=== PATIENT | female | born 1965 | race Caucasian/White ===

== ENCOUNTER 2023-09-30 07:53 | Outpatient (REF) | payer OTHER, SELFPAY ==
[2023-09-30 12:09] LABS: MANUAL DIFF FLAG NO
[2023-09-30 12:13] LABS: Basophils Percent Auto 0.5 % (0-2); Eosinophils Absolute Auto 0.3 X10*3/uL (0.0-0.4); Eosinophils Percent Auto 3.9 % (0-4); Hematocrit 43.5 % (37.0-47.0); Hemoglobin 14.1 g/dl (12.0-16.0); Imm Gran Abs Auto 0.02 X10*3/uL (0.00-0.03); Imm Gran Pct Auto 0.3 % (0.0-0.4); Lymphocytes Percent Auto 31.7 % (20-40); Mean Corpuscular HGB Conc 32.4 g/dl (31.0-35.0); Mean Corpuscular Hemoglobin 28.6 pg (27.0-33.0); Mean Corpuscular Volume 88.2 fL (80.0-98.0); Mean Platelet Volume 11.3 fL (9.4-12.3); Monocytes Absolute Auto 0.6 X10*3/uL (0.1-1.2); Monocytes Percent Auto 9.2 % (2-11); Neutrophils Absolute Auto 3.5 x10*3/uL (2.0-8.3); Neutrophils Percent Auto 54.4 % (45-73); Platelet Count 228 X10*3/uL (160-400); Red Blood Count 4.93 X10*6/uL (4.20-5.50); Red Cell Distribution Width 13.2 % (11.0-16.0); White Blood Count 6.4 X10*3/uL (4.8-10.8)
[2023-09-30 12:24] LABS: Appearance Urine Clear; Color Urine Yellow; Glucose Urine UA Negative (Negative); Leukocyte Esterase Urine Negative (Negative); Nitrite Urine Negative (Negative); Specific Gravity - Urine 1.015 (1.005-1.025); Urine Blood Negative (Negative); Urine Ketones Negative (Negative); Urine Protein Negative (Neg-Trace)
[2023-09-30 12:38] LABS: Alanine Aminotransferase 12 U/L (0-31); Albumin Level 4.2 g/dL (3.5-5.0); Alkaline Phosphatase 65 U/L (39-117); Anion Gap 15 (12-20); Aspartate Amino Transferase 16 U/L (5-31); Bilirubin Total 0.4 mg/dL (0.0-1.0); Blood Urea Nitrogen 16 mg/dL (9-16); Calcium 9.2 mg/dL (8.4-10.2); Carbon Dioxide 24 mmol/L (22-29); Chloride 108 mmol/L (96-108); Cholesterol 222 mg/dL (<200); Estimated Glomerular Filt Rate > 60; Glucose Fasting 90 mg/dL (60-99); HDL Cholesterol 63 mg/dL (>40); LDL Cholesterol Calculated 148 mg/dL (<100); Sodium 143 mmol/L (135-145); Total Protein 6.8 g/dL (6.5-8.0); Triglycerides 56 mg/dL (<150)
[2023-09-30 12:53] LABS: TSH reflex Free T4 1.96 uIU/mL (0.32-4.0); Vitamin D 25-OH Total 20.9 ng/mL (>30)
== END 2023-09-30 07:54 | disposition home or self-care (01) ==
LOC: HO.HMGCLDS 07:53
PROVIDERS: PCP Nurse Practitioner Family; Visit Provider Nurse Practitioner Family
DX: Z00.00 Encounter for general adult medical examination without abnormal findings (principal); Z78.0 Asymptomatic menopausal state
CPT/HCPCS: 36415; 80053; 80061; 81003; 82306; 84443; 85025

== ENCOUNTER 2023-10-16 12:33 | Outpatient (AMB) | payer OTHER, SELFPAY ==
--- NOTE | 2023-10-16 12:37 | A.OFFPC_ITS ---
Vital Signs 10/16/23 12:42 Weight 164 lb BP 110/78 Blood Pressure Location Rt brachial Position Sitting Pulse 62 Pulse Source Pulse Oximeter Pulse Oximetry (%) 95 Intake Visit Reasons: PE Intake Note: Patient here for physical exam. pt would like to discuss jaw discomfort which has been going on for about 1 year. 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 Allergies bacitracin [From Neosporin ([id number])] Allergy (Intermediate, Verified 10/16/23 12:46) Blister neomycin [From Neosporin ([id number])] Allergy (Intermediate, Verified 10/16/23 12:46) Blister polymyxin B [From Neosporin ([id number])] Allergy (Intermediate, Verified 10/16/23 12:46) Blister Medication List - Last Reconciled 10/16/23 by ALBERT Holliday albuterol sulfate 90 mcg/actuation (ProAir HFA) 2 puffs inhalation Q6H alclometasone 0.05% appl topical BID PRN atorvastatin 10 mg PO BEDTIME azelaic acid 15% topical BID cetirizine 10 mg PO DAILY Tobacco use date assessed: 10/16/23 Dental Screening Dental Screen Date: 10/16/23 Did you have a dental visit in the last 12 months?: Yes Did you have a dental problem in the last 6 months where you did not have access to dental care?: No Was dental information given to patient?: Patient has dentist HPI PE HPI Details Pt is here for a PE. Labs were already performed. Colon screen is up to date. Due for mammo, will order again. Pt's vitamin D was noted to be low. Recommended oral vitamin D supplement (100-200iu daily). Pt has a hx of TMJ. She reports popping with associated pain of her jaw. Will refer to PT. Dyslipidemia: Pt's cholesterol was elevated. Will start atorvastatin 10mg and repeat labs in 2 months. Pt is a smoker. She was referred for low-dose CT previously but did not go (insurance reasons at the time), will refer again. Will also send nicotine patches. [facility] Medical History (Updated 10/16/23 @ 13:06 by ALBERT Holliday) Nicotine dependence, cigarettes, uncomplicated Graves disease Family History Sister Mental health disorder Substance use disorder Social History Housing: House Patient Tobacco Use Status: Current everyday Tobacco user Cigarettes Per Day: 10 e-Cigarette/Vaping Use: Never Used Second Hand Smoke Exposure: No service: No Current occupational status: employed Current occupation: [employer] Current occupational exposures/hazards: Yes Cognitive needs: No Hearing needs: No Vision needs: No Questionnaire Thrive Questionnaire Date Thrive assessed: 08/13/22 KRISTINA-7 AMB Questionnaire KRISTINA-7 Date KRISTINA - 7 assessed: 08/13/22 Source: Developed by Drs. Rich Valentine, Laura Mendoza, Angel Booth and colleagues, with an educational amna from [employer]. Review of Systems Const Denies chills and Denies fever(s) Eyes Denies blurry vision ENT Denies vertigo, Denies dizziness and Denies sore throat Card Denies chest pain at rest, Denies chest pain with activity, Denies diaphoresis, Denies dyspnea and Denies dyspnea on exertion Resp Denies cough, Denies dyspnea, Denies dyspnea on exertion and Denies wheezing GI Denies abdominal pain, Denies melena, Denies hematochezia, Denies constipation, Denies diarrhea and Denies loose stools Denies hematuria Musc Denies numbness and Denies tingling Skin/Breast Denies lesions Neuro Denies vertigo, Denies dizziness, Denies numbness and Denies tingling Psych Denies anxiety, Denies depression, Denies homicidal ideation, Denies suicidal ideation and Denies other (substance abuse) Aller/Immun Denies wheezing Physical exam (Primary Care) Vital Signs: Last Vital Signs Pulse 62 10/16/23 12:42 BP 110/78 10/16/23 12:42 Pulse Ox 95 10/16/23 12:42 Tobacco/Smoking Status: Tobacco use Status Tobacco use date assessed 10/16/23 10/16/23 12:48 Patient Tobacco Use Status Current everyday Tobacco 10/16/23 12:39 e-Cigarette/Vaping Use Never Used 10/16/23 12:39 Thrive Assessment: Date of Thrive Assessment Date Thrive assessed 08/13/22 10/16/23 12:39 Const General: cooperative Nutritional Appearance: well nourished Orientation/consciousness: patient oriented x3 HENWA Other: + tmj bilat Head: Yes normal to inspection, Yes normocephalic and Yes atraumatic Ears: TM's normal bilaterally Eyes General: appearance normal, both eyes and all related structures Alignment and Position: alignment normal and position normal Neck Neck: Yes normal visual inspection and Yes no lymphadenopathy Thyroid: Thyroid normal Resp Effort & Inspection: normal respiratory effort Auscultation: clear to auscultation bilaterally Cardio Rate: regular rate Rhythm: regular rhythm Heart sounds: S1 normal heart sound present, S2 normal heart sound present and no murmurs GI Palpation (GI): Soft to palpation and nontender Auscultation: normal bowel sounds Skin Rashes: no rashes Neuro General: patient oriented x3, moves all extremities, no focal motor deficits and deep tendon reflexes 2+ bilaterally Romberg Test: Negative Psych Appearance: grossly normal Mental Status: mental status grossly normal Speech and movement: Normal speech and movement present Affect: normal affect Attitude: cooperative Thought process: Normal thought process present Thought content: Normal thought content present Insight: Good insight present (Psych) Judgement: Good judgement present (Psych) Assessment and Plan Assessment & Plan (1) Encounter for routine adult physical exam with abnormal findings: Code(s): Z00.01 - Encounter for general adult medical examination with abnormal findings Plan: Labs already performed (2) Vitamin D deficiency: Code(s): E55.9 - Vitamin D deficiency, unspecified Plan: Recommended vitamin D supplement (3) Dyslipidemia: Code(s): E78.5 - Hyperlipidemia, unspecified Plan: Starting atorvastatin, will repeat labs in 2 months (4) TMJ arthralgia: Code(s): M26.629 - Arthralgia of temporomandibular joint, unspecified side Plan: Referred to PT (5) Nicotine dependence, cigarettes, uncomplicated: Comment: (current smoker - onset 9yo, 1ppd x 47yrs, 45pyh) Code(s): F17.210 - Nicotine dependence, cigarettes, uncomplicated Plan: referring back to thoracics. nicotine patches sent Plan The patient agreed to the use of a medical records specialist for this encounter. Scribed for ALBERT Guerra by Nai Damon medical records specialist, on 10/16/2023 at 12:55 EST. Orders: Orders Comprehensive [place]. Panel Fast 2 Months E78.5 - Hyperlipidemia, unspecified MM screening mammo BI Today Z12.31 - Encounter for screening mammogram for malignant neoplasm of breast PT Evaluation and Treatment Today M26.629 - Arthralgia of temporomandibular joint, unspecified side Lipid Panel 2 Months E78.5 - Hyperlipidemia, unspecified Referrals Thoracic/General Surgery Referral F17.210 - Nicotine dependence, cigarettes, uncomplicated Medications: New nicotine 1 patch transdermal DAILY 28 ea 0RF atorvastatin 10 mg PO BEDTIME 90 tabs 0RF Refilled cetirizine 10 mg PO DAILY 90 tabs 1RF Coding Level of Care Code Est Pt Level 3 (55482) Est Pt Prev Care 40-64y(96291) Diagnoses Encounter for routine adult physical exam with abnormal findings Z00.01 Vitamin D deficiency E55.9 Dyslipidemia E78.5 TMJ arthralgia M26.629 Nicotine dependence, cigarettes, uncomplicated F17.210
[2023-10-16 12:42] VITALS: BP 110/78; PULSE 62; O2SAT 95
== END 2023-10-16 17:25 | disposition home or self-care (01) ==
PROVIDERS: Visit Provider Nurse Practitioner Family
DX: Z00.00 Encounter for general adult medical examination without abnormal findings (principal); E55.9 Vitamin D deficiency, unspecified; E78.5 Hyperlipidemia, unspecified; M26.629 Arthralgia of temporomandibular joint, unspecified side; F17.210 Nicotine dependence, cigarettes, uncomplicated
CPT/HCPCS: 99213; 99396

== ENCOUNTER → 2023-10-23 12:45 | Outpatient (BNV) | payer OTHER, SELFPAY | PROVIDERS: PCP Nurse Practitioner Family; Visit Provider Radiology Diagnostic Radiology | DX: Z12.31 Encounter for screening mammogram for malignant neoplasm of breast (principal) | CPT/HCPCS: 77063; 77067 ==

== ENCOUNTER 2023-10-23 12:48 | Outpatient (REF) | payer OTHER, SELFPAY ==
--- NOTE | ~2023-10-23 | MM_ITS ---
EXAMINATION: MM SCREENING DIGITAL BREAST TOMOSYNTHESIS, BILATERAL CLINICAL INFORMATION: Screening. Asymptomatic. COMPARISON: Mammography: This study is compared with prior exams dating back to 2013. TECHNIQUE: Digital breast tomosynthesis is performed in both the craniocaudal and mediolateral oblique views along with computer-aided detection (CAD). Synthesized 2D images are generated from the tomosynthesis. FINDINGS: There are scattered areas of fibroglandular density (ACR BI-RADS breast composition Category b). In the central portion of the left breast, in the posterior nipple line, there are grouped calcifications which warrant additional mammographic imaging with magnification. When the patient returns for the additional imaging of the left breast, the left MLO view should be repeated since there is motion artifact. In the right breast, there are no significant masses, abnormal calcifications, or other abnormalities. MM/MM tomosynthesis screening BI IMPRESSION: Grouped calcifications of the left breast warrant additional mammographic imaging with magnification. No mammographic signs of malignancy right breast. ASSESSMENT: BI-RADS BI-RADS 0 - Incomplete: Needs additional Imaging. RECOMMENDATION: Additional views of the left breast. Radiology department staff will contact the patient for additional imaging. Additional Imaging required This examination should not preclude the clinical evaluation of a suspicious palpable abnormality. This patient's information was entered into a reminder system with a target due date for their next mammogram.
== END 2023-10-23 12:49 | disposition home or self-care (01) ==
LOC: HO.MAMMO 12:48
PROVIDERS: PCP Nurse Practitioner Family; Visit Provider Nurse Practitioner Family
DX: Z12.31 Encounter for screening mammogram for malignant neoplasm of breast (principal)
CPT/HCPCS: 77063; 77067

== ENCOUNTER 2023-11-27 14:00 | Outpatient (REF) | payer OTHER, SELFPAY ==
--- NOTE | ~2023-11-27 | MM_ITS ---
EXAMINATION: MM DIAGNOSTIC DIGITAL BREAST TOMOSYNTHESIS, LEFT US BREAST LIMITED, LEFT MAMMOGRAPHY: CLINICAL INFORMATION: Diagnostic mammography to evaluate calcifications in the central left breast, middle one third, not seen previously in 2016. COMPARISON: Mammography: [place]23/[place]23 [place] [place] or 07/19/2015, 04/05/2014, 06/04/2013, and 05/27/2013 ([facility]). TECHNIQUE: Digital breast tomosynthesis is performed in following views: Full field 3-D left MLO view, as well as 2-D spot magnification left CC and ML views. This was followed by diagnostic left breast ultrasound. FINDINGS: There are scattered areas of fibroglandular density (ACR BI-RADS breast composition Category b). Diagnostic views demonstrate a group of pleomorphic suspicious calcifications in the central left breast retroareolar location, with linear, branching, and casting forms, suspicious. These do not conform to an underlying vessel or other structure. Stereotactic guided biopsy recommended. In addition, there is an oval slightly lobulated isodense mass at the 4:00 axis left breast, 3.5 cm from the nipple, measuring approximately 7 x 6 mm. This will be evaluated by ultrasound. ULTRASOUND: CLINICAL INFORMATION: Left breast 4:00 axis, 7 x 6 mm slightly lobular mass seen on diagnostic views for calcifications. COMPARISON: None relevant. TECHNIQUE: Targeted sonographic evaluation left breast was performed using a high frequency linear transducer. Attention was given to the 4:00 axis, 3 cm from the nipple left breast. Selected archived documentation. FINDINGS: LEFT BREAST: At the 4:00 axis, 3 cm from the nipple, there is a complicated cyst with through transmission, a lobular border, no internal color Doppler flow, and some low-level internal echoes measuring 5 x 6 x 5 mm. This is a probably benign in abnormality, and six-month follow-up targeted left breast ultrasound recommended. MM/MM added views LT IMPRESSION: -There are suspicious calcifications in the central left breast, middle one third, for which stereotactic biopsy is recommended. -At the 4:00 axis left breast, there is a lobulated complicated cyst as described, measuring 5 x 6 x 5 mm, probably benign and six-month interval follow-up recommended to ensure stability. -Findings and recommendations were discussed with the patient in detail. OVERALL ASSESSMENT: Mammography: BI-RADS 4 - Suspicious finding Ultrasound: BI-RADS 4 - Suspicious finding RECOMMENDATION: Biopsy recommended Electronically signed by: Joe Brown MD 11/27/2023 03:14 PM EDT
== END 2023-11-27 14:01 | disposition home or self-care (01) ==
LOC: HO.MAMMO 14:00
PROVIDERS: PCP Nurse Practitioner Family; Visit Provider Nurse Practitioner Family
DX: R92.1 Mammographic calcification found on diagnostic imaging of breast (principal)
CPT/HCPCS: 76642; 77065

== ENCOUNTER → 2023-11-27 14:00 | Outpatient (BNV) | payer OTHER, SELFPAY | PROVIDERS: PCP Nurse Practitioner Family; Visit Provider Radiology Diagnostic Radiology | DX: R92.1 Mammographic calcification found on diagnostic imaging of breast (principal) | CPT/HCPCS: 77061; 77065 ==

== ENCOUNTER 2023-11-28 16:22 | Outpatient (AMB) | payer OTHER, SELFPAY ==
--- NOTE | 2023-11-28 14:44 | A.OFFVIS_ITS ---
Intake Visit Reasons: Current Smoker Allergies bacitracin [From Neosporin ([id number])] Allergy (Intermediate, Verified 12:46) Blister neomycin [From Neosporin ([id number]-isp-[id number])] Allergy (Intermediate, Verified 10/16/23 12:46) Blister polymyxin B [From Neosporin ([id number]-lfa-[id number])] Allergy (Intermediate, Verified 0 10/16/23 12:46) Blister HPI HPI Current Smoker: Details: Initial telehealth visit via phone for this 58yo smoker with a 40PYH. Patient has been smoking since age 10 for 48 years at 3/4-1ppd. Currently at 3/4ppd. . Denies marijuana use. Denies second hand smoke exposure. Denies exposure to chemicals or substances like asbestos. . Denies known family history of lung cancer. Denies personal history of cancers. Denies chest CT in last year. . Denies recent travel outside the [place]. Denies recent respiratory illness or recent hospitalization for respiratory issues. Reports testing positive for COVID. Admits receiving COVID Vaccine. x 1. . Denies fever, chills, new/worsening cough, hemoptysis, hoarseness or dysphagia. Denies significant chest pain, significant dyspnea or unintentional weight loss. Patient Lung Cancer Screening Questionnaire reviewed with patient by provider. . Shared Decision Making Completed. Patient meets criteria. Discussed in detail with patient, the risk vs benefit of LDCT screening. Patient consents to proceed with scan. Discussed smoking cessation. [facility] Medical History (Updated 11/28/23 @ 14:50 by Oly Galan PA-C) Nicotine dependence, cigarettes, uncomplicated Graves disease Family History (Reviewed 10/16/23 @ 13:12 by Demetrius Butler, [facility]) Sister Mental health disorder Substance use disorder Social History (Updated 11/28/23 @ 14:51 by Oly Galan PA-C) Housing: House Patient Tobacco Use Status: Current everyday Tobacco user Cigarettes Per Day: 10 Years Smoked: (onset 10yo, 3/4-1ppd x 48yrs, 40pyh) e-Cigarette/Vaping Use: Never Used Second Hand Smoke Exposure: No service: No Current occupational status: employed Current occupation: [employer] Current occupational exposures/hazards: Yes Cognitive needs: No Hearing needs: No Vision needs: No Telehealth Telehealth Telehealth Platform: Telephone Location of provider rendering services: practice address Location of patient: address on file Patient Identification confirmed using: Name, : Yes Telehealth method: voice only Patient verbally consented to treatment: Yes Patient verbally consented to billing insurance company: Yes Patient informed of any privacy concerns related to visit: Yes Minutes spent on Phone/Video with Pt.: 15 Assessment & Plan Assessment & Plan (1) Nicotine dependence, cigarettes, uncomplicated: Comment: (current smoker - onset 10yo, 3/4-1ppd x 48yrs, 40pyh) Code(s): F17.210 - Nicotine dependence, cigarettes, uncomplicated Category: Medical Plan: - SDM visit completed today via phone - Patient meets criteria for LDCT for lung cancer screening purposes and is asymptomatic. - Smoking cessation counseling offered. Patients can always call [phone]. - Will arrange for a LDCT scan of the chest for screening purposes at [facility]. - Risks, benefits, and alternatives were discussed in detail and the patient agrees to proceed. - Risks discussed include but are not limited to: radiation exposure, anxiety during testing and while awaiting results, false negatives, false positives and possibility of additional intervention such as further imaging or surgical p rocedures for benign disease. - Benefits are obviously detection of lung cancer at an early stage which can lead to improved outcomes. - Discussed the importance of screening program compliance with adherence to yearly LDCT scan as scheduled - or sooner interval scans for personalized screening regimen. - Discussed follow up plan. Our office will send a letter discussing results and if needed set up phone call and office visit based on CT findings. - Patient educated on results categorization and the management decisions for suspicious findings potentially found on the screening LDCT scan. Any patient with a Lung RADS score of 3 or 4 will be reviewed by a multidisciplinary team at [facility] to form a plan of action in regards to scan findings. - If further work up is warranted for a suspicious lung finding this will be followed by the Lung Cancer Screening program in conjunction with the Thoracic Surgery Department at [facility]. - A copy of the office note and LDCT will be sent to the patient's PCP - as well as documentation on any associated further plans of care. - Incidental findings on LDCT are the PCP's responsibility. These findings are indicated with an S finding on the LDCT Assessment. A note discussing the findings will be sent to the PCP who is then responsible for further management. - All questions answered.? Coding Level of Care Code Lung Cancer Screening G0296 Diagnoses Nicotine dependence, cigarettes, uncomplicated F17.210
== END 2023-11-28 16:23 | disposition home or self-care (01) ==
LOC: HO.HPS 16:22
PROVIDERS: PCP Nurse Practitioner Family; Referring Provider Nurse Practitioner Family; Visit Provider Physician Assistant Medical
DX: F17.210 Nicotine dependence, cigarettes, uncomplicated (principal)
CPT/HCPCS: G0296

== ENCOUNTER → 2023-11-28 16:22 | Outpatient (BNVA) | payer OTHER, SELFPAY | PROVIDERS: PCP Nurse Practitioner Family; Visit Provider Physician Assistant Medical | DX: F17.210 Nicotine dependence, cigarettes, uncomplicated (principal) | CPT/HCPCS: G0296 ==

== ENCOUNTER 2023-11-29 10:02 | Outpatient (REF) | payer OTHER, SELFPAY ==
--- NOTE | ~2023-11-29 | CT_ITS ---
EXAMINATION: CT LOW-DOSE SCREENING CHEST WITHOUT CONTRAST CLINICAL INFORMATION: Nicotine dependence, cigarettes, uncomplicated. The patient is a current smoker with a 48 pack-year history of smoking. COMPARISON: None available. TECHNIQUE: Multidetector volumetric CT imaging of the chest is performed on a Siemens SOMATOM Definition scanner without contrast using low dose technique. Additional 2D coronal and sagittal reformatted images and axial 3D maximum intensity projection (MIP) images are generated on the CT workstation. This CT examination was performed using dose optimization techniques as appropriate, variously including the following: *Automated exposure control. *Adjustment of mA and/or kV according to patient size (this includes techniques or standardized protocols for targeted exams where dose is matched to indication/reason for exam; i.e. extremities or head). *Use of iterative reconstruction technique. TOTAL EXAM DLP: 42 mGy-cm. CTDIvol: 1.24 mGy. FINDINGS: PULMONARY NODULES: No suspicious pulmonary nodules. Small punctate calcified granulomas are present. LUNGS: Lungs bilaterally symmetrically expanded. There is diffuse mild emphysema along with mild bronchial thickening without bronchiectasis. No effusion or pneumothorax. Central airways patent. MEDIASTINUM: No mediastinal, hilar or axillary adenopathy or free fluid collection. CORONARY ARTERY CALCIFICATION: None visualized on this study. THYROID GLAND: Unremarkable to the extent seen. CARDIOVASCULAR STRUCTURES: Aortic and heart size normal. No pericardial effusion. CHEST WALL/AXILLA: Unremarkable. UPPER ABDOMEN: Included portions of the solid organs in the upper abdomen unremarkable on noncontrast imaging. OSSEOUS STRUCTURES: No suspicious focal findings. CT/CT lung screening IMPRESSION: No findings seen suspicious for malignancy. ASSESSMENT: 1. Lung-RADS Category 1: Negative. There are no nodules or there are definitely benign nodules. N/A. 2. Lung-RADS Category S: Negative. There are no clinically significant or potentially clinically significant findings not related to the lungs requiring urgent additional evaluation. RECOMMENDATION: Continued routine annual low-dose CT lung screening in 1 year is recommended. An order for CT CHEST LOW DOSE CANCER SCREENING ([id number]) can be placed. Electronically signed by: Ebenezer Ott MD 12/27/2023 12:54 AM EDT
== END 2023-11-29 10:03 | disposition home or self-care (01) ==
LOC: HO.CT 10:02
PROVIDERS: PCP Nurse Practitioner Family; Visit Provider Physician Assistant Medical
DX: Z12.2 Encounter for screening for malignant neoplasm of respiratory organs (principal); F17.210 Nicotine dependence, cigarettes, uncomplicated
CPT/HCPCS: 71271

== ENCOUNTER 2023-12-03 08:38 | Outpatient (AMB) | payer OTHER, SELFPAY ==
--- NOTE | 2023-12-03 08:39 | A.OFFVIS_ITS ---
Vital Signs 12/03/23 08:40 Height 5 ft 5 in Weight 164 lb BMI 27.3 Intake Visit Reasons: Stereotactic bx (L) breast with calcifications Intake Note: Patient is seen in office for stereotactic biopsy consult, left breast calcifications. Pt c/o: reports no breast lump/mass, reports no change in size or shape, reports no nipple discharge. us/mm:11/27/23 Cell Preparer Required: No Accompanied by: Self / Same As Patient Allergies bacitracin [From Neosporin ([id number])] Allergy (Intermediate, Verified 12/03/23 08:43) Blister neomycin [From Neosporin ([id number]-yck-mqujy)] Allergy (Intermediate, Verified 12/03/23 08:43) Blister polymyxin B [From Neosporin ([id number])] Allergy (Intermediate, Verified 12/03/23 08:43) Blister HPI Comments Details: 58-year-old female patient presenting with a screening mammogram of 10/23/2023 and follow-up diagnostic mammogram and ultrasound on 11/27/2023 which revealed a suspicious cluster of calcifications in the left breast in the central portion middle 3rd for which stereotactic guided core biopsy is recommended. A 2nd left breast complicated cyst located at the 04:00 o'clock axis is considered low suspicion and six-month follow-up study is recommended. She denies a previous history of breast problems or breast surgery. Her family history is positive for breast cancer in her mother, diagnosed at the age of 60. She underwent lumpectomy and lived to her 90s. She denies any breast pain, palpable lump, skin change, nipple discharge or enlarged lymph nodes. Menarche was the age of 10. She is 2, para 2, and breastfed both her children. [facility], [facility] Medical History Nicotine dependence, cigarettes, uncomplicated Graves disease Family History Sister Mental health disorder Substance use disorder Mother Breast cancer, Onset Age: 60 Sister Skin cancer Social History Housing: House Patient Tobacco Use Status: Current everyday Tobacco user Cigarettes Per Day: 10 Years Smoked: (onset 10yo, 3/4-1ppd x 48yrs, 40pyh) e-Cigarette/Vaping Use: Never Used Second Hand Smoke Exposure: No service: No Current occupational status: employed Current occupation: [employer] Current occupational exposures/hazards: Yes Cognitive needs: No Hearing needs: No Vision needs: No Female Reproductive History Menstrual Age of Menarche: 10 Total pregnancies: 2 Review of Systems Const All systems reviewed & are unremarkable except as noted in HPI and below Denies chills, Denies fever(s), Denies headache(s), Denies poor appetite and Denies weakness ENT Denies headache(s) Card Denies chest pain, Denies irregular heart rhythm, Denies palpitations and Denies dyspnea Resp Denies cough, Denies excessive phlegm production and Denies dyspnea GI Denies abdominal pain, Denies bloating, Denies change in bowel habits, Denies constipation, Denies heartburn, Denies diarrhea, Denies nausea and Denies vomiting Denies urinary frequency Musc Denies back pain, Denies muscle weakness and Denies numbness Skin/Breast Denies changing lesions and Denies unusual bruising Neuro Denies headache(s), Denies numbness, Denies paresthesias and Denies weakness Psych Denies anxiety and Denies depression Endo Denies palpitations Bishop/Lymph Denies lymphadenopathy Physical Exam Vital Signs: BMI result Body Mass Index 27.3 Const General: cooperative and no acute distress Nutritional Appearance: well nourished Orientation/consciousness: patient oriented x3 Limitations: no limitations HEENT Head: Yes normocephalic and Yes atraumatic Ears: hearing grossly normal bilaterally Chest Other: Left breast: No skin change, no nipple retraction, no nipple discharge, no palpable mass, no enlarged lymph nodes. Right breast: No skin change, no nipple retraction, no nipple discharge, no palpable mass, no enlarged lymph nodes Resp Effort & Inspection: normal respiratory effort, no audible wheezes, no cough and no respiratory distress Cardio Jugular venous distension: no JVD GI Inspection: Yes normal to inspection Skin Other: Warm, dry, no rash Neuro General: patient oriented x3 Extrem General: Yes no clubbing, cyanosis or edema Assessment & Plan Assessment & Plan (1) Abnormal mammogram of left breast: Code(s): R92.8 - Other abnormal and inconclusive findings on diagnostic imaging of breast Category: Medical Plan 58-year-old female patient presenting with a recent mammogram which revealed a cluster of calcifications in the mid left breast felt to be suspicious for malignancy. She is scheduled for a stereotactic guided core biopsy later today at the [facility]. Examination today revealed no suspicious findings in either breast. I recommended that she return approximately 1 week to review the pathology results and discuss treatment options. She expressed understanding and agrees with the plan. Orders: Orders MM stereotactic biopsy LT Today R92.8 - Other abnormal and inconclusive findings on diagnostic imaging of breast Coding Level of Care Code New Pt Level 4 (51378) Diagnoses Abnormal mammogram of left breast R92.8
[2023-12-03 08:40] VITALS: BMI 27.3
== END 2023-12-03 09:01 | disposition home or self-care (01) ==
PROVIDERS: PCP Nurse Practitioner Family; Visit Provider Surgery
DX: R92.8 Other abnormal and inconclusive findings on diagnostic imaging of breast (principal)
CPT/HCPCS: 99204

== ENCOUNTER 2023-12-03 09:51 | Outpatient (REF) | payer OTHER, SELFPAY ==
--- NOTE | ~2023-12-03 | MM_ITS ---
EXAMINATION: STEREOTACTIC TOMOSYNTHESIS-GUIDED VACUUM-ASSISTED BREAST BIOPSY, LEFT SPECIMEN RADIOGRAPH, LEFT POST PROCEDURE DIGITAL MAMMOGRAM, LEFT CLINICAL INFORMATION: Suspicious grouped calcifications central left breast middle one third, recommended for stereotactic biopsy.. COMPARISON: 10/23/2023, 11/27/2023 left breast mammography. TECHNIQUE/PROCEDURE: Informed consent was obtained from the patient after discussion of the benefits, risks, and alternatives to biopsy today. Patient appeared to understand. Gave opportunity for questions. Patient signed consent form. BIOPSY TABLE: Bucket[employer]et Affirm Prone Biopsy System. LESION: Grouped pleomorphic calcifications, central left breast, middle one third. LOCAL ANESTHESIA: 4 mL 1% lidocaine; 10 mL 1% lidocaine with epinephrine. DERMATOTOMY: Single 2 mm skin antione dermatotomy performed. NEEDLE: Ova[employer] Oncologyiva 9-gauge vacuum assisted core biopsy device. APPROACH: craniocaudal. TARGETING: Digital breast tomosynthesis used for targeting. CORES: 7. CLIP: Top hat-shaped. SPECIMEN RADIOGRAPH: Specimen radiograph is taken in separate room using digital mammography. The index calcifications are in the excised cores. A few residual calcifications remaining at the site. POST PROCEDURE UNILATERAL DIGITAL MAMMOGRAM: The post biopsy mammogram is performed in separate room using separate digital mammography equipment from the biopsy procedure. CC and MLO views are obtained. There are scattered areas of fibroglandular density (breast composition category: b). The clip marker is in accurate position. The calcifications are markedly decreased at the biopsy site. No gross hematoma. The patient tolerated the procedure well. No immediate complications. Home instructions reviewed with the patient. Final pathology results are pending. MM/MM stereotactic biopsy LT IMPRESSION: 1. Digital tomosynthesis-guided core biopsy left breast suspicious central calcifications with clip placement. 2. Specimen radiograph taken and post procedure mammogram. There is accurate positioning of the biopsy clip. No complication. 3. Final pathology results pending. An addendum report will be issued. Electronically signed by: Joe Brown MD 12/03/2023 12:14 PM EDT
[2023-12-03] MEDS: Lidocaine HCl 1 % 20 ML VIAL 4 ML SUBCUT (10:47)
[2023-12-03] MEDS: Sodium Bicarbonate 8.4% 50 MEQ/50 ML VIAL SUBCUT (10:48)
[2023-12-03] MEDS: Lidocaine HCl 1%/Epi 1:100,000 10 ML VIAL 18 ML SUBCUT (10:50)
== END 2023-12-03 09:52 | disposition home or self-care (01) ==
LOC: HO.MAMMO 09:51
PROVIDERS: PCP Nurse Practitioner Family; Visit Provider Surgery
DX: R92.8 Other abnormal and inconclusive findings on diagnostic imaging of breast (principal)
CPT/HCPCS: 19081; 88305; 99202; A4648

== ENCOUNTER → 2023-12-03 10:00 | Outpatient (BNV) | payer OTHER, SELFPAY | PROVIDERS: PCP Nurse Practitioner Family; Visit Provider Radiology Diagnostic Radiology | DX: R92.1 Mammographic calcification found on diagnostic imaging of breast (principal) | CPT/HCPCS: 19081; 77061 ==

== ENCOUNTER 2023-12-17 13:42 | Outpatient (AMB) | payer OTHER, SELFPAY ==
--- NOTE | 2023-12-17 13:46 | A.OFFVIS_ITS ---
Vital Signs 12/17/23 13:47 Height 5 ft 5 in Weight 163 lb 2.273 oz BMI 27.1 Pulse 62 Intake Visit Reasons: Biopsy results Intake Note: Patient is seen in office for stereotactic biopsy results, left breast calcifications. Pt c/o: no concerns at the time of visit Public Health Director Required: No Accompanied by: Self / Same As Patient Allergies bacitracin [From Neosporin ([id number])] Allergy (Intermediate, Verified 12/17/23 13:47) Blister neomycin [From Neosporin ([id number])] Allergy (Intermediate, Verified 12/17/23 13:47) Blister polymyxin B [From Neosporin ([id number])] Allergy (Intermediate, Verified 12/17/23 13:47) Blister HPI Comments Details: 58-year-old female patient presenting with a screening mammogram of 10/23/2023 and follow-up diagnostic mammogram and ultrasound on 11/27/2023 which revealed a suspicious cluster of calcifications in the left breast in the central portion middle 3rd for which stereotactic guided core biopsy is recommended. A 2nd left breast complicated cyst located at the 04:00 o'clock axis is considered low suspicion and six-month follow-up study is recommended. She denies a previous history of breast problems or breast surgery. Her family history is positive for breast cancer in her mother, diagnosed at the age of 60. She underwent lumpectomy and lived to her 90s. She denies any breast pain, palpable lump, skin change, nipple discharge or enlarged lymph nodes. Menarche was the age of 10. She is 2, para 2, and breastfed both her children. Patient underwent stereotactic guided core biopsy on 12/03/2023. Subsequent pathology revealed benign breast tissue with fibrocystic change; no atypia or malignancy identified. A follow-up ultrasound of the left breast was recommended in 6 months' time. [facility] Medical History Nicotine dependence, cigarettes, uncomplicated Graves disease Family History Sister Mental health disorder Substance use disorder Mother Breast cancer, Onset Age: 60 Sister Skin cancer Social History Housing: House Patient Tobacco Use Status: Current everyday Tobacco user Cigarettes Per Day: 10 Years Smoked: (onset 10yo, 3/4-1ppd x 48yrs, 40pyh) e-Cigarette/Vaping Use: Never Used Second Hand Smoke Exposure: No service: No Current occupational status: employed Current occupation: [employer] Current occupational exposures/hazards: Yes Cognitive needs: No Hearing needs: No Vision needs: No Female Reproductive History Menstrual Age of Menarche: 10 Review of Systems Const All systems reviewed & are unremarkable except as noted in HPI and below Denies chills, Denies fever(s), Denies headache(s), Denies poor appetite and Denies weakness ENT Denies headache(s) Card Denies chest pain, Denies irregular heart rhythm, Denies palpitations and Denies dyspnea Resp Denies cough, Denies excessive phlegm production and Denies dyspnea GI Denies abdominal pain, Denies bloating, Denies change in bowel habits, Denies constipation, Denies heartburn, Denies diarrhea, Denies nausea and Denies vomiting Denies urinary frequency Musc Denies back pain, Denies muscle weakness and Denies numbness Skin/Breast Denies changing lesions and Denies unusual bruising Neuro Denies headache(s), Denies numbness, Denies paresthesias and Denies weakness Psych Denies anxiety and Denies depression Endo Denies palpitations Bishop/Lymph Denies lymphadenopathy Physical Exam Vital Signs: Last Vital Signs Pulse 62 12/17/23 13:47 BMI result Body Mass Index 27.1 Const General: cooperative and no acute distress Nutritional Appearance: well nourished Orientation/consciousness: patient oriented x3 Limitations: no limitations HEENT Head: Yes normocephalic and Yes atraumatic Ears: hearing grossly normal bilaterally Chest Other: Exam deferred Resp Effort & Inspection: normal respiratory effort, no audible wheezes, no cough and no respiratory distress Cardio Jugular venous distension: no JVD GI Inspection: Yes normal to inspection Skin Other: Warm, dry, no rash Neuro General: patient oriented x3 Extrem General: Yes no clubbing, cyanosis or edema Assessment & Plan Assessment & Plan (1) Abnormal mammogram of left breast: Code(s): R92.8 - Other abnormal and inconclusive findings on diagnostic imaging of breast Category: Medical Plan 58-year-old female patient with a recent mammogram which revealed a suspicious cluster of calcifications in the left breast status post stereotactic guided core biopsy 1 week ago. Subsequent pathology revealed benign breast tissue with no atypia or malignancy. A follow-up ultrasound of the left breast is recommended to re-evaluate a complex cyst. Patient should follow up following this ultrasound to review the results. She is welcome to call sooner for any new concerns. Orders: Orders US breast LT limited 06/15/24 R92.8 - Other abnormal and inconclusive findings on diagnostic imaging of breast Coding Level of Care Code Est Pt Level 3 (58500) Diagnoses Abnormal mammogram of left breast R92.8
[2023-12-17 13:47] VITALS: PULSE 62; BMI 27.1
== END 2023-12-17 13:56 | disposition home or self-care (01) ==
PROVIDERS: PCP Nurse Practitioner Family; Visit Provider Surgery
DX: R92.8 Other abnormal and inconclusive findings on diagnostic imaging of breast (principal)
CPT/HCPCS: 99213

== ENCOUNTER → 2023-12-17 13:42 | Outpatient (BNVA) | payer OTHER, SELFPAY | PROVIDERS: PCP Nurse Practitioner Family; Visit Provider Surgery | DX: R92.8 Other abnormal and inconclusive findings on diagnostic imaging of breast (principal) | CPT/HCPCS: 99212 ==

== ENCOUNTER 2024-01-06 07:35 | Outpatient (AMB) | payer OTHER, SELFPAY ==
--- NOTE | 2024-01-06 07:08 | MHC.PC.OV ---
Intake Visit Reasons: Chhaya pain f/u ~ [phone] Allergies bacitracin [From Neosporin ([id number])] Allergy (Intermediate, Verified 12/17/23 13:47) Blister neomycin [From Neosporin ([id number])] Allergy (Intermediate, Verified 12/17/23 13:47) Blister polymyxin B [From Neosporin ([id number])] Allergy (Intermediate, Verified 12/17/23 13:47) Blister Medication List - Last Reconciled 01/06/24 by ZHOU Holliday-RODNEY albuterol sulfate 90 mcg/actuation (ProAir HFA) 2 puffs inhalation Q6H alclometasone 0.05% appl topical BID PRN atorvastatin 10 mg PO BEDTIME azelaic acid 15% topical BID cetirizine 10 mg PO DAILY ibuprofen 800 mg PO Q8H PRN 30 days nicotine 1 patch transdermal DAILY Tobacco use date assessed: 10/16/23 Dental Screening Dental Screen Date: 10/16/23 HPI Chhaya pain f/u ~ [phone] HPI Details Pt c/o jaw pain. She has a hx of TMJ. Pt is going to PT for this, encouraged her to continue this. Will order XR and refer to orthodontics, ongoing pain and discomfort. Will also send ibuprofen 800mg, pt knows to take this prn. [facility] Medical History Nicotine dependence, cigarettes, uncomplicated Graves disease Family History Sister Mental health disorder Substance use disorder Mother Breast cancer, Onset Age: 60 Sister Skin cancer Social History Housing: House Patient Tobacco Use Status: Current everyday Tobacco user Cigarettes Per Day: 10 Years Smoked: (onset 10yo, 3/4-1ppd x 48yrs, 40pyh) e-Cigarette/Vaping Use: Never Used Second Hand Smoke Exposure: No service: No Current occupational status: employed Current occupation: [employer] Current occupational exposures/hazards: Yes Cognitive needs: No Hearing needs: No Vision needs: No Female Reproductive History Menstrual Age of Menarche: 10 Questionnaire Thrive Questionnaire Date Thrive assessed: 08/13/22 KRISTINA-7 AMB Questionnaire KRISTINA-7 Date KRISTINA - 7 assessed: 08/13/22 Source: Developed by Drs. Rich Valentine, Laura Mendoza, Angel Booth and colleagues, with an educational amna from [employer]. Review of Systems Const Reports as per HPI Physical exam (Primary Care) Tobacco/Smoking Status: Tobacco use Status Tobacco use date assessed 10/16/23 10/16/23 12:48 Patient Tobacco Use Status Current everyday Tobacco 11/28/23 14:51 e-Cigarette/Vaping Use Never Used 11/28/23 14:51 Thrive Assessment: Date of Thrive Assessment Date Thrive assessed 08/13/22 10/16/23 12:39 Const General: cooperative Orientation/consciousness: patient oriented x3 Neuro General: patient oriented x3 Psych Appearance: grossly normal Mental Status: mental status grossly normal Speech and movement: Clear speech present Affect: normal affect Attitude: cooperative Thought process: Normal thought process present Thought content: Normal thought content present Insight: Good insight present (Psych) Judgement: Good judgement present (Psych) Telehealth Telehealth Telehealth Platform: Backspaces Location of provider rendering services: practice address Location of patient: address on file Patient Identification confirmed using: Name, : Yes Telehealth method: video Patient verbally consented to treatment: Yes Patient verbally consented to billing insurance company: Yes Patient informed of any privacy concerns related to visit: Yes Minutes spent on Phone/Video with Pt.: 10 Assessment and Plan Assessment & Plan (1) TMJ arthralgia: Code(s): M26.629 - Arthralgia of temporomandibular joint, unspecified side Plan: XR ordered, referred to orthodontics, ibuprofen sent Plan The patient agreed to the use of a medical and scientific illustrator for this encounter. Scribed for ALBERT Guerra by Nai Damon medical and scientific illustrator, on 01/06/2024 at 07:05 EST. Orders: Orders XR TMJ BI Today M26.629 - Arthralgia of temporomandibular joint, unspecified side Referrals Orthodontics Referral M26.629 - Arthralgia of temporomandibular joint, unspecified side Medications: New ibuprofen 800 mg PO Q8H 30 days PRN 90 tabs 0RF pain Coding Level of Care Code Tele Est Pt Level 3 (41702) Diagnoses TMJ arthralgia M26.629
== END 2024-01-06 08:31 | disposition home or self-care (01) ==
LOC: HO.HMCC 07:36
PROVIDERS: PCP Nurse Practitioner Family; Visit Provider Nurse Practitioner Family
DX: M26.629 Arthralgia of temporomandibular joint, unspecified side (principal)

== ENCOUNTER → 2024-01-06 07:35 | Outpatient (BNVA) | payer OTHER, SELFPAY | PROVIDERS: PCP Nurse Practitioner Family; Visit Provider Nurse Practitioner Family | DX: M26.629 Arthralgia of temporomandibular joint, unspecified side (principal) ==

== ENCOUNTER 2024-01-27 14:00 | Outpatient (RCR) | payer OTHER, SELFPAY | END 2024-03-13 09:27 | disposition home or self-care (01) | LOC: HO.PT 14:00 | PROVIDERS: PCP Nurse Practitioner Family; Visit Provider Nurse Practitioner Family | DX: M26.629 Arthralgia of temporomandibular joint, unspecified side (principal) | CPT/HCPCS: 97035; 97110; 97140; 97161; 97535 ==

== ENCOUNTER → 2024-04-24 10:30 | Outpatient (BNV) | payer OTHER, SELFPAY | PROVIDERS: PCP Internal Medicine; Visit Provider Radiology Diagnostic Radiology | DX: M85.89 Other specified disorders of bone density and structure, multiple sites (principal) | CPT/HCPCS: 77080 ==

== ENCOUNTER 2024-04-24 10:39 | Outpatient (REF) | payer OTHER, SELFPAY ==
--- NOTE | ~2024-04-24 | MM_ITS ---
EXAMINATION: Dual-Energy X-ray Absorptiometry - Bone Density Study HISTORY: Estrogen deficiency TECHNIQUE: [employer] Dual energy absorptiometry (DEXA) of the lumbar spine, total left hip, and femoral neck was performed. COMPARISON: There are no prior studies for comparison. FINDINGS: The bone mineral density of the lumbar spine is 0.637 with a T-score of -4.5, and a Z-score of -3.5. The bone mineral density of the left total hip is 0.660 with a T-score of -2.8, and a Z-score of -2.0. The bone mineral density of the left femoral neck is 0.728 with a T-score of -2.2, and a Z-score of -1.1. FRACTURE RISK: The FRAX index suggests a risk of major osteoporotic fracture of 11.3%, and of hip fracture 2.9%. MM/XR DEXA axial skeleton IMPRESSION: Based on bone mineral density, and according to World Health Organization (WHO) criteria, the diagnosis is consistent with osteoporosis. All bone density values are in grams per centimeter squared. At this facility, the least significant change in BMD with 95% confidence is 0.022 at the lumbar spine, 0.027 at the hip, and 0.023 at the distal 1/3 radius. Electronically signed by: Rich Tejeda MD 04/24/2024 02:38 PM [facility]
== END 2024-04-24 10:40 | disposition home or self-care (01) ==
LOC: HO.MAMMO 10:39
PROVIDERS: PCP Internal Medicine; Visit Provider Nurse Practitioner Women's Health
DX: Z78.0 Asymptomatic menopausal state (principal)
CPT/HCPCS: 77080

== ENCOUNTER → 2024-09-25 08:00 | Outpatient (BNV) | payer OTHER, SELFPAY | PROVIDERS: PCP Nurse Practitioner Family; Visit Provider Internal Medicine | DX: N63.23 Unspecified lump in the left breast, lower outer quadrant (principal) | CPT/HCPCS: 76642 ==

== ENCOUNTER 2024-09-25 08:07 | Outpatient (REF) | payer OTHER, SELFPAY ==
--- NOTE | ~2024-09-25 | US_ITS ---
EXAMINATION: US DIAGNOSTIC ULTRASOUND BREAST, LEFT CLINICAL INFORMATION: 6 month follow-up for complicated cysts versus solid mass at 4:00 3 cm from the nipple in the left breast.. COMPARISON: Comparison is made with relevant prior imaging. TECHNIQUE: Ultrasound of the breast is performed with real-time hamilton scale imaging and color Doppler. FINDINGS: Targeted color Doppler ultrasound scanning of 4:00 3 cm from nipple demonstrates a hypoechoic oval solid mass versus complicated cyst measuring 5 x 4 x 5 mm not significant change from prior ultrasound 6 months ago. Results are discussed with the patient at time of visit. US/US breast LT limited IMPRESSION: Hypoechoic solid mass versus complicated cyst in the left breast at 4:00 3 cm from nipple. Recommend 6 month follow-up ultrasound for further evaluation of stability. ASSESSMENT: BI-RADS 3: Probably Benign RECOMMENDATION: Diagnostic ultrasound in 6 months. This patient's information was entered into a reminder system with a target due date for their next mammogram. Electronically signed by: Lesley Montero DO 09/25/2024 09:12 AM EDT
--- OUTSIDE RECORDS SUMMARY | 2024-09-25 08:10 | XMS_ITS | Clinical Summary ---
Author Organization [address] [place] [address] [place] [phone] Phone Care Team Providers Care Briar Cutter Name Role Phone Demetrius Butler NP Primary Care Provider Immunizations Name Administration Dates Next Due Influenza Quadravalent, MDCK , 0.5ml, preservative free (Flucelvax) 6mo and older 02/18/2018 Influenza Quadrivalent, 0.5m l, preservative free (Fluarix; FluLaval; Fluzone) ages 6mo and older (Afluria) 3yo and older 04/27/2020 Influenza trivalent, with pr eservative (Fluzone; Afluria) 6mo and older 04/22/2012 Social History Tobacco Use Types Packs/Day Years Used Date Smoking Tobacco: Never Assessed Comments Unknown Sex and Gender Information Value Date Recorded Sex Assigned at Not on file Legal Sex Female 12:52 PM EST Gender Identity Not on file Sexual Orientation Not on file Plan of Treatment Health Maintenance Due Date Last Done Comments Breast Cancer Screening 1965 DTaP,Tdap,and Td Vaccines (1 - Tdap) 10/21/1982 Cervical Cancer Screening: P ap Smear 10/21/1984 Pneumococcal Vaccine: 50+ Years (1 of 1 - PCV) 10/21/2013 Zoster Vaccines (1 of 2) 10/21/2013 COVID-19 Vaccine (3 - 2023-2 5 season) 2023 07/15/2020, 06/24/2020 Colorectal Cancer Screening: Colonoscopy 02/12/2024 Depression Screening 02/12/2024 HIV Screening 02/12/2024 Hepatitis C Screening 02/12/2024 Social Influencers of Health Screening 02/12/2024 Influenza Vaccine (Season Ended) 2024 04/27/2020, 02/18/2018, 04/22/2012 RSV Immunization Adult Patients (1 - 1-dose 75+ series) 10/21/2038 HIB Vaccines Aged Out No longer eligi ble based on patient's age to complete this topic HPV Vaccines Aged Out No longer eligi ble based on patient's age to complete this topic Hepatitis A Vaccines Aged Out No long er eligible based on patient's age to complete this topic Hepatitis B Vaccines Aged Out No long er eligible based on patient's age to complete this topic IPV Vaccines Aged Out No longer eligi ble based on patient's age to complete this topic MMR Vaccines Aged Out No longer eligi ble based on patient's age to complete this topic Meningococcal ACWY Vaccine Aged Out N o longer eligible based on patient's age to complete this topic Meningococcal B Vaccine Aged Out No l onger eligible based on patient's age to complete this topic Pneumococcal Vaccine: Pediatrics (0 to 5 Years) and At-Risk Patients (6 to 64 Years) Aged Out No longer eligible b ased on patient's age to complete this topic RSV Immunization Patients Under 20 months Aged Out No longer eligible b ased on patient's age to complete this topic Varicella Vaccines Aged Out No longer eligible based on patient's age to complete this topic Insurance [employer] Care Teams Briar Cutter Relationship Specialty Start Date End Date Demetrius Butler NP [address] [place], [place] PCP - General Family Medicine 02/12/24
== END 2024-09-25 08:08 | disposition home or self-care (01) ==
LOC: HO.MAMMO 08:07
PROVIDERS: PCP Nurse Practitioner Family; Visit Provider Nurse Practitioner Family
DX: N63.23 Unspecified lump in the left breast, lower outer quadrant (principal)
CPT/HCPCS: 76642

== ENCOUNTER 2024-11-05 13:01 | Outpatient (AMB) | payer OTHER, SELFPAY ==
--- NOTE | 2024-11-05 13:05 | A.OFFPC_ITS ---
Vital Signs 11/05/24 13:06 Height 5 ft 5 in Weight 169 lb BMI 28.1 BP 118/70 Blood Pressure Location Lt brachial Position Sitting Respiration 16 Pulse 62 Pulse Source Pulse Oximeter Pulse Oximetry (%) 100 Oxygen Delivery Method Room Air Intake Visit Reasons: Annual PE Decorative Engraver Required: No Accompanied by: Self / Same As Patient Allergies bacitracin (From Neosporin ([id number])) Allergy (Intermediate, Verified 11/05/24 13:27) Blister neomycin (From Neosporin ([id number])) Allergy (Intermediate, Verified 11/05/24 13:27) Blister polymyxin B (From Neosporin ([id number])) Allergy (Intermediate, Verified 11/05/24 13:27) Blister Medication List - Last Reconciled 11/05/24 by Demetrius Butler [facility] albuterol sulfate 90 mcg/actuation (ProAir HFA) 2 puffs inhalation Q6H cetirizine 10 mg PO DAILY cholecalciferol (vitamin D3) 50 mcg PO DAILY ibuprofen 800 mg PO Q8H PRN 30 days Tobacco use date assessed: 11/05/24 Dental Screening Dental Screen Date: 10/16/23 Did you have a dental visit in the last 12 months?: Yes Did you have a dental problem in the last 6 months where you did not have access to dental care?: No Was dental information given to patient?: Patient has dentist HPI Annual PE HPI Details History of Present Illness The patient is a 59-year-old female presenting for a routine wellness visit and management of osteoporosis. She has been diagnosed with osteoporosis, which is managed by an developer advocate. She is advised to follow up with her developer advocate for further evaluation and management, including a potential 24-hour urine test. The patient has a history of smoking and continues to smoke, which necessitates regular low-dose CT scans for lung cancer screening. She also undergoes regular mammograms as part of her preventative care regimen. She is due for a colon cancer screening, and arrangements will be made to facilitate this. Health Maintenance - Regular mammograms - Low dose CT scans due to smoking histo ry - Colon cancer screening Social History - Smoking: Patient continues to smoke an d has a history of smoking. Review of Systems - General: Denies fever, chills. - Cardiovascular: Denies chest pain. - Respiratory: Denies increased dyspnea. - Gastrointestinal: Denies abdominal ronda n, blood in stool, constipation, diarrhea. - Psychiatric: Denies suicidal ideation, homicidal ideation. Physical Exam General: Cooperative, healthy appearing, comfortable, no acute distress and well developed Orientation: Patient oriented x3 Limitations: No limitations Head: Normal to inspection Ears: Hearing grossly normal bilaterally, TMs intact Nose: Normal external nose present Face and sinus: Normal facial exam Eyes: Appearance normal, both eyes and all related structures Neck: Normal visual inspection and Yes full ROM Respiratory: Normal respiratory effort and able to speak in complete sentences. Clear to auscultation bilaterally Cardiovascular: Regular rate and rhythm. Normal S1 and S2 GI: Normal to inspection. Soft to palpation and nontender Skin: No rashes or lesions noted, fair skinned Neuro: Patient oriented x3 Extremities: Normal to inspection, trace to BLE Results Plan The patient will continue to manage her osteoporosis under the care of her developer advocate, with a follow-up appointment recommended to discuss further evaluation, including a potential 24-hour urine test. She is advised to maintain her regular mammogram schedule and continue with low- dose CT scans due to her smoking history. Arrangements will be made for her to undergo a colon cancer screening as part of her preventative care. Discussion Notes I discussed with the patient the importance of continuing her osteoporosis man agement with her developer advocate and the potential need for a 24-hour urine test. We also talked about the necessity of regular mammograms and low-dose CT scans due to her smoking history. Additionally, I emphasized the need for her to complete her colon cancer screening. Patient Instructions - Follow up with your developer advocate fo r osteoporosis management. - Continue regular mammograms and low-do se CT scans. - Schedule and complete your colon cance r screening. [facility] Medical History Nicotine dependence, cigarettes, uncomplicated Graves disease Family History Sister Mental health disorder Substance use disorder Mother Breast cancer, Onset Age: 60 Sister Skin cancer Social History Housing: House Patient Tobacco Use Status: Current everyday Tobacco user Cigarettes Per Day: 10 Years Smoked: (onset 10yo, 3/4-1ppd x 48yrs, 40pyh) e-Cigarette/Vaping Use: Never Used Second Hand Smoke Exposure: No service: No Current occupational status: employed Current occupation: [employer] Current occupational exposures/hazards: Yes Cognitive needs: No Hearing needs: No Vision needs: No Female Reproductive History Menstrual Age of Menarche: 10 Questionnaire PHQ-9 Over the last 2 weeks, how often have you been bothered by any of the following problems? 1. Little interest or pleasure in doing things: not at all 2. Feeling down, depressed, or hopeless: not at all 3. Trouble falling or staying asleep, or sleeping too much: not at all 4. Feeling tired or having little energy: several days 5. Poor appetite or overeating: not at all 6. Feeling bad about yourself - or that you are a failure or have let yourself or your family down: not at all 7. Trouble concentrating on things, such as reading the newspaper or watching television: not at all 8. Moving or speaking so slowly that other people could have noticed. Or the opposite - being so fidgety or restless that you have been moving around a lot more than usual: not at all 9. Thoughts that you would be better off or of hurting yourself in some way: not at all Total score: 1 Depression Screening Interpretation: Negative Depression Screening Done: Yes 55816 - PHQ-9 Billing: Yes Source: Developed by Drs. Rich Valentine, Laura Mendoza, Angel Booth and colleagues, with an educational amna from [employer]. Thrive Questionnaire Date Thrive assessed: 10/29/24 I am a: Patient What is your living situation today?: I have a steady place to live Within the past 12 months, did the food you bought not last and you didn't have the money to get more?: Never true Within the past 12 months, did you worry whether your food would run out before you got money to buy more?: Never true Do you have trouble paying for medicines?: No Do you have trouble getting transportation to medical appointments?: No Do you have trouble paying your heating and electricity bill?: No Do you have trouble taking care of your child, family member or friend?: No Do you have trouble with day-to-day activities such as bathing, preparing meals, shopping, managing finances, etc.?: No Are you currently unemployed and looking for a job?: No Are you interested in more education?: No Please select the resources that you would like help with: None Currently or been in a relationship where the following occur: No concerns reported THRIVE Score: 0 AUDIT C Alcohol Use Questionnaire (AUDIT-C) 1. How often do you have a drink containing alcohol?: 2-4 times a month 2. How many drinks containing alcohol do you have on a typical day when you are drinking?: 3 or 4 3. How often do you have six or more drinks on one occasion?: Never Total Score: 3 Score Reviewed/Action Taken: Yes KRISTINA-7 AMB Questionnaire KRISTINA-7 Date KRISTINA - 7 assessed: 11/05/24 Feeling nervous, anxious, or on edge: 0 = Not at all Not being able to stop or control worryin = Not at all Worrying too much about different things: 0 = Not at all Trouble relaxin = Not at all Being so restless that it is hard to sit still: 0 = Not at all Becoming easily annoyed or irritable: 0 = Not at all Feeling afraid as if something awful might happen: 0 = Not at all Total KRISTINA-7 score (0-4 normal; 5-9 mild; 10-14 moderate; 15-21 severe): 0 Source: Developed by Drs. Rich Valentine, Laura Mendoza, Angel Booth and colleagues, with an educational amna from [employer]. KRISTINA-7 Assessment Billing KRISTINA-7 Assessment Tool: KRISTINA-7 Assessment 47021 Physical exam (Primary Care) Vital Signs: Last Vital Signs Pulse 62 11/05/24 13:06 Resp 16 11/05/24 13:06 BP 118/70 11/05/24 13:06 Pulse Ox 100 11/05/24 13:06 Oxygen Delivery Method Room Air 11/05/24 13:06 BMI result Body Mass Index 28.1 Tobacco/Smoking Status: Tobacco use Status Tobacco use date assessed 11/05/24 11/05/24 13:12 Patient Tobacco Use Status Current everyday Tobacco 11/05/24 13:12 e-Cigarette/Vaping Use Never Used 11/05/24 13:12 PHQ-9: PHQ-9 Score PHQ-9: Total score 1 11/05/24 13:28 Depression Screening Interpretation: Negative Thrive Assessment: Date of Thrive Assessment Date Thrive assessed 10/29/24 11/05/24 13:12 Currently or been in a relationship where the following occur: No concerns reported Coding Level of Care Code Est Pt Prev Care 40-64y(96490) Diagnoses Screening for colon cancer Z12.11 Physical exam Z00. Vitamin D deficiency E55.9 Osteoporosis M81.0 TMJ arthralgia M26.629 Additional Codes KRISTINA-7 Assessment Billing - KRISTINA-7 Assessment Tool: KRISTINA-7 Assessment 61894 ([id number]) PHQ-9 - 02674 - PHQ-9 Billing: Yes ([id number]) Assessment & Plan Assessment & Plan (1) Screening for colon cancer: Code(s): Z12.11 - Encounter for screening for malignant neoplasm of colon Category: Medical (2) Physical exam: Code(s): Z00.00 - Encounter for general adult medical examination without abnormal findings Category: Medical (3) Vitamin D deficiency: Code(s): E55.9 - Vitamin D deficiency, unspecified Category: Medical (4) Osteoporosis: Code(s): M81.0 - Age-related osteoporosis without current pathological fracture Category: Medical (5) TMJ arthralgia: Code(s): M26.629 - Arthralgia of temporomandibular joint, unspecified side Category: Medical Plan . Orders: Orders Complete Blood Count Auto Diff Today Z00.00 - Encounter for general adult medical examination without abnormal findings UA CC w/rflx Micro + Cult Today Z00.00 - Encounter for general adult medical examination without abnormal findings PT Evaluation and Treatment Today M26.629 - Arthralgia of temporomandibular joint, unspecified side Comprehensive [place]. Panel Fast Today Z00.00 - Encounter for general adult medical examination without abnormal findings TSH reflex Free T4 Today Z00.00 - Encounter for general adult medical examination without abnormal findings Lipid Panel Today Z00.00 - Encounter for general adult medical examination without abnormal findings Vitamin D 25-OH (D2 and D3) Today E55.9 - Vitamin D deficiency, unspecified Referrals Gastroenterology Referral Z12.11 - Encounter for screening for malignant neoplasm of colon
[2024-11-05 13:06] VITALS: BP 118/70; PULSE 62; RESP 16; O2SAT 100; BMI 28.1
--- OUTSIDE RECORDS SUMMARY | 2024-11-05 13:12 | XMS_ITS | Clinical Summary ---
Author Organization [address] [place] [address] [place] [phone] Phone Care Team Providers Care Clinical Coder Name Role Phone Demetrius Butler NP Primary [...] 07/15/2020, 06/24/2020 Colorectal Cancer Screening: Colonoscopy 02/12/2024 HIV Screening 02/12/2024 Hepatitis C Screening 02/12/2024 Social Influencers of Health Screening 02/12/2024 Depression Screening 04/08/2024 Influenza Vaccine (#1) 2024 , 02/18/2018, 04/22/2012 RSV Immunization Adult Patients (1 [...] this topic Insurance [employer] Care Teams Clinical Coder Relationship Specialty Start Date End Date Demetrius Butler NP [address] [place], [place] PCP - General Family Medicine 02/12/24
--- OUTSIDE RECORDS SUMMARY | 2024-11-05 13:12 | XMS_ITS | Clinical Summary ---
Author Organization [facility] Address [address] [place] [address] Care Team Providers Care Senior Auditor Name Role Phone Tito Mcneill Primary Care Provider [phone] Source Comments PLEASE NOTE, if this patient is a minor, it may be UNLAWFUL to discuss sensitive information that is contained in these records (such as FAMILY PLANNING, MENTAL HEALTH or SUBSTANCE ABUSE) with the minor patient's parent or other person without the patient's specific authorization.[facility] Medications ESTRING 2 mg (7.5 mcg /24 hour) vaginal ring INSERT 1 RING VAGINALLY 0 Active LORazepam (ATIVAN) 0.5 mg tabletIndicati ons:Anxiety Take 1 Tab by mouth nightly at bedtime as needed for anxiety 20 Tab 0 Active ceramides 1,3,6-11 (CERAVE) lotnIndication s:eczema Apply 1 Applicatorful topically once daily Indications: eczema 355 mL 3 0 Active ammonium lactate 12 % cream Apply topically as needed for dry skin 140 g 2 0 Active CHANTIX CONTINUING MONTH BOX 1 mg tabletIndicati ons:Smoking TAKE 1 TABLET BY MOUTH TWICE A DAY 168 Tab 0 Active Active Problems Problem Noted Date Diagnosed Date Anxiety 06/15/2019 Immunizations Immunization Administration Dates Next Due Flu, Cell Culture based, Pre servative Free, 6m+, Flucelvax 02/18/2018 INFLUENZA, SEASONAL, INJECTABLE 04/22/2012 Family History Medical History Relation Name Comments Heart failure Father Breast cancer Mother Relation Name Status Comments Father Mother Social History Tobacco Use Types Packs/Day Years Used Date Smoking Tobacco: Every Day Cigarettes Smokeless Tobacco: Never Tobacco Cessation:Ready to Q uit: Yes; Counseling Given: Yes Comments:on chantix Alcohol Use Standard Drinks/Week Comments Yes 0 (1 standard drink = 0.6 oz pur e alcohol) occassionally Social Connections Answer Date Recorded Connectedness 0 12/28/2023 Financial Resource Strain Answer Date R ecorded Financial Resource Strain 0 2019 Stress Answer Date Recorded Stress 0 06/15/2019 Physical Activity Answer Date Recorded Physical Activity 0 06/15/2019 Food Insecurity Answer Date Recorded Food 0 01/02/2024 Transportation Needs Answer Date Record ed Transportation 0 06/15/2019 Housing Stability Answer Date Recorded Housing 0 06/15/2019 Safety and Environment Answer Date Vikram rded Safety 0 06/15/2019 Utilities Answer Date Recorded Utilities 0 06/15/2019 Employment Answer Date Recorded Stress 0 12/28/2023 Comments Unknown Sex and Gender Information Value Date Recorded Sex Assigned at Female 06/15/2019 7:06 AM PDT Legal Sex Female 10:27 AM PST Gender Identity Female 06/15/2019 7:06 AM PDT Sexual Orientation Straight 06/15/2019 7: 06 AM PDT 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 Not on file Not on file Not on file Last Filed Vital Signs Vital Sign Reading Time Taken Comments Blood Pressure 119/80 06/15/2019 9:56 AM EDT Pulse 65 06/15/2019 9:56 AM EDT Temperature 36.7 C (98.1 F) 06/15/2019 9:56 AM EDT Respiratory Rate 16 06/15/2019 9:56 AM EDT Oxygen Saturation - - Inhaled Oxygen Concentration - - Weight 72.6 kg (160 lb) 06/15/2019 9:56 AM EDT Height 162 cm (5' 3.78 ) 06/15/2019 9:56 AM EDT Body Mass Index 27.65 06/15/2019 9:56 AM EDT Plan of Treatment Health Maintenance Due Date Last Done Comments Anxiety Screening 1965 HPV Screening 1965 Pap + HPV 1963 Tobacco Screening 1963 HIV Screening 10/21/1978 Imm-DTaP/Tdap/Td (1 - Tdap) 10/21/1982 Imm-Pneumococcal 50+ (1 of 2 - PCV) 10/21/1982 Breast Cancer Screening (Mammogram) 2003 CT Colonography 10/21/2008 Colonoscopy 10/21/2008 Colorectal Cancer Screening 10/21/2008 FIT/gFOBT 10/21/2008 Fecal DNA 10/21/2008 Flexible Sigmoidoscopy 10/21/2008 Imm-Zoster, Recombinant (1 of 2) 10/21/2013 Annual Wellness (Adult): Ind icated (All Coverage) 06/14/2020 06/15/2019 Hypertension Screening (#1) 06/14/2020 Tobacco Cessation Counseling (#1) 06/14/2020 Diabetes Screening 06/14/2022 06/15/2019 Jvn-PPOXC-11 ( season) 2023 Alcohol and Drug Screen 04/08/2024 06/15/2019 Depression Annual Screen 04/08/2024 06/15/2019 Lipid Screening 06/14/2024 06/15/2019 Imm-Influenza (#1) 2024 02/18/2018, 04/22/2012 Cervical Cancer Screening 08/22/2025 Pap Smear 08/22/2025 08/22/2020 Hepatitis C Screening Completed 06/15/2019 Cervical Ablation/Cold-Knife Conization Discontinued Cervical Cryotherapy Discontinued Colposcopy Discontinued Endometrial Biopsy Discontinued Excision/Leep Discontinued HPV Genotyping Discontinued Vaginal Pap Discontinued Vulvoscopy Discontinued Procedures Procedure Name Priority Date/Time Associated Diagnosis Comments HEPATITIS A,B,C PANEL Routine 06/15/2019 10:47 AM EDT Routine adult health maintenance COMPREHENSIVE METABOLIC PANEL Routine 06/15/2019 10:47 AM EDT Routine adult health maintenance LIPID PANEL Routine 06/15/2019 10:47 AM EDT Routine adult health maintenance from Last 3 Months or Most Recently Relevant to Health Maintenance Results * HEPATITIS A,B,C PANEL (06/15/2019 10:47 AM EDT) HEPATITIS B SURFACE ANTIBODY NEGATIVE NEGATIVE [facility] HEPATITIS B SURFACE ANTIGEN NEGATIVE NEGATIVE [facility] Comment: Over the counter supplements containing high doses of biotin may interfere with this assay. If interference is suspected, patients shoud be retested after refraining from biotin supplements for 72 hours. HEPATITIS C VIRUS DIAGNOSTIC NEGATIVE NEGATIVE [facility] HEPATITIS B CORE ANTIBODY NEGATIVE NEGATIVE [facility] HEPATITIS A ANTIBODY TOTAL NEGATIVE NEGATIVE [facility] Comment: Over the counter supplements containing high doses of biotin may interfere with this assay. If interference is suspected, patients shoud be retested after refraining from biotin supplements for 72 hours. Blood specimen (specimen) Blood / Unknown 06/15/2019 10:47 AM EDT 06/15/2019 10:54 AM EDT [place] [facility] - 06/15/2019 7:38 PM EDT [employer], [place] [address] Chief Cardiopulmonary Technologist - Rosy Young MD PT ID [id number] ORD# [id number] [facility] - BLOOD DRAW Edited Result - Final Performing Organization Address City/[facility] [place] [address], * (ABNORMAL) LIPID PANEL (06/15/2019 10:47 AM EDT) CHOLESTEROL 212(H) 0 - 200 mg/dL [facility] TRIGLYCERIDES 69 0 - 150 mg/dL [facility] HDL CHOLESTEROL 73 >40 mg/dL [facility] LDL CALCULATED 126(H) 0 - 100 mg/dL [facility] TC-HDLC RATIO 2.9 0 - 4.4 mg/dL [facility] Blood specimen (specimen) Blood / Unknown 06/15/2019 10:47 AM EDT 06/15/2019 10:54 AM EDT [facility] - 06/15/2019 7:17 PM EDT [employer] [address] Chief Cardiopulmonary Technologist - Rosy Young MD PT ID [id number] ORD# [id number] [facility] - BLOOD DRAW Edited Result - Final Performing Organization Address City/[facility]/ZIP Co de Phone Number [facility] [address] [place] [address], * COMPRE METAB PANEL (06/15/2019 10:47 AM EDT) GLUCOSE 77 70 - 100 mg/dL [facility] Comment:Reference range appl icable to fasting specimens only BUN 12 5 - 25 mg/dL [facility] CREAT 0.67 0.5 - 1.1 mg/dL [facility] GLOMERULAR FILTRATION RATE > 60 [facility] Comment: If patient is -Eritrean, multiply result by 1.21 Chronic Kidney Disease: < 60 ml/min/1.73 square meters Kidney Failure: < 15 ml/min/1.73 square meters SODIUM 139 135 - 145 mEq/L [facility] POTASSIUM 4.2 3.5 - 5.5 mmol/L [facility] CHLORIDE 108 96 - 110 mmol/L [facility] CO2 27 21 - 32 mmol/L [facility] ANION GAP 4 3 - 11 [facility] CALCIUM 9.0 8.5 - 10.5 mg/dL [facility] TOTAL PROTEIN 6.8 6.0 - 8.0 G/dL [facility] ALBUMIN 3.8 3.2 - 5.0 G/dL [facility] SGOT 13 10 - 42 U/L [facility] SGPT 21 10 - 60 U/L [facility] BILI, TOTAL 0.3 0.0 - 1.4 mg/dL [facility] ALK PHOS 83 42 - 121 U/L [facility] Blood specimen (specimen) Blood / Unknown 06/15/2019 10:47 AM EDT 06/15/2019 10:54 AM EDT Narrative [facility] - 06/15/2019 7:17 PM EDT [employer], a member of [address] [address] Chief Cardiopulmonary Technologist - Rosy Young MD PT ID [id number] ORD# [id number] [facility] - BLOOD DRAW Edited Result - Final [facility] [address] [place] [address], from Last 3 Months or Most Recently Relevant to Health Maintenance Insurance [facility] [employer] Care Teams Senior Auditor Relationship Specialty Start Date End Date Tito Mcneill PA [address] [place] [id number] PCP - General Internal Medicine 05/01/19
== END 2024-11-05 14:06 | disposition home or self-care (01) ==
LOC: HO.HMCC 13:02
PROVIDERS: PCP Nurse Practitioner Family; Visit Provider Nurse Practitioner Family
DX: Z12.11 Encounter for screening for malignant neoplasm of colon (principal); Z00.00 Encounter for general adult medical examination without abnormal findings; E55.9 Vitamin D deficiency, unspecified; M81.0 Age-related osteoporosis without current pathological fracture; M26.629 Arthralgia of temporomandibular joint, unspecified side; Z23 Encounter for immunization

== ENCOUNTER → 2024-11-05 13:01 | Outpatient (BNVA) | payer OTHER, SELFPAY | PROVIDERS: PCP Nurse Practitioner Family; Visit Provider Nurse Practitioner Family | DX: Z00.00 Encounter for general adult medical examination without abnormal findings (principal); M81.0 Age-related osteoporosis without current pathological fracture; E55.9 Vitamin D deficiency, unspecified; M26.629 Arthralgia of temporomandibular joint, unspecified side; F17.200 Nicotine dependence, unspecified, uncomplicated; Z23 Encounter for immunization | CPT/HCPCS: 90471; 90677; 96127; 99396 ==

== ENCOUNTER → 2024-11-16 09:30 | Outpatient (BNV) | payer OTHER, SELFPAY | PROVIDERS: PCP Nurse Practitioner Family; Visit Provider Internal Medicine | DX: Z12.31 Encounter for screening mammogram for malignant neoplasm of breast (principal) | CPT/HCPCS: 77063; 77067 ==

== ENCOUNTER 2024-11-16 09:33 | Outpatient (REF) | payer OTHER, SELFPAY ==
--- OUTSIDE RECORDS SUMMARY | 2024-11-16 10:01 | XMS_ITS | Clinical Summary ---
Author Organization [address] [place] [address] [place] [phone] Phone Care Team Providers Care Joiner Helper Name Role Phone Demetrius Butler NP Primary [...] this topic Insurance [employer] Care Teams Joiner Helper Relationship Specialty Start Date End Date Demetrius Butler NP [address] [place], [place] PCP - General Family Medicine 02/12/24
--- OUTSIDE RECORDS SUMMARY | 2024-11-16 10:02 | XMS_ITS | Clinical Summary ---
Author Organization [facility] Address [address] [place] [address] Care Team Providers Care Ivf Embryologist Name Role Phone Tito Mcneill Primary Care Provider [phone] Source Comments PLEASE NOTE, if this patient [...] Counseling (#1) 06/14/2020 Diabetes Screening 06/14/2022 06/15/2019 [id number] ( season) 2023 Alcohol and Drug Screen [...] EDT) HEPATITIS B SURFACE ANTIBODY NEGATIVE NEGATIVE [facility] HEPATITIS B SURFACE ANTIGEN NEGATIVE NEGATIVE [facility] Comment: Over the counter supplements containing high doses of biotin may interfere with this assay. If interference is suspected, patients shoud be retested after refraining from biotin supplements for 72 hours. HEPATITIS C VIRUS DIAGNOSTIC NEGATIVE NEGATIVE [facility] HEPATITIS B CORE ANTIBODY NEGATIVE NEGATIVE [facility] HEPATITIS A ANTIBODY TOTAL NEGATIVE NEGATIVE [facility] Comment: Over the counter supplements containing high doses of biotin may interfere with this assay. If interference is suspected, patients shoud be retested after refraining from biotin supplements for 72 hours. Blood specimen (specimen) Blood / Unknown 06/15/2019 10:47 AM EDT 06/15/2019 10:54 AM EDT [place] [facility] - 06/15/2019 7:38 PM EDT RMI, [place] [address] Glue Maker - Rosy Young MD PT ID [id number] ORD# [id number] [facility] - BLOOD DRAW Edited Result - Final Performing Organization Address City/[facility] [place] [address], * (ABNORMAL) LIPID PANEL (06/15/2019 10:47 AM EDT) CHOLESTEROL 212(H) 0 - 200 mg/dL [facility] TRIGLYCERIDES 69 0 - 150 mg/dL [facility] HDL CHOLESTEROL 73 >40 mg/dL [facility] LDL CALCULATED 126(H) 0 - 100 mg/dL [facility] TC-HDLC RATIO 2.9 0 - 4.4 mg/dL [facility] Blood specimen (specimen) Blood / Unknown 06/15/2019 10:47 AM EDT 06/15/2019 10:54 AM EDT [place] [facility] - 06/15/2019 7:17 PM EDT [place]MI, [place] [address] Glue Maker - Rosy Young MD PT ID [id number] ORD# [id number] [facility] - BLOOD DRAW Edited Result - Final Performing Organization Address City/[facility]/ZIP Co de Phone Number [facility] [address] [place] [address], * COMPRE METAB PANEL (06/15/2019 10:47 AM EDT) GLUCOSE 77 70 - 100 mg/dL [facility] Comment:Reference range appl icable to fasting specimens only BUN 12 5 - 25 mg/dL [facility] CREAT 0.67 0.5 - 1.1 mg/dL [facility] GLOMERULAR FILTRATION RATE > 60 [facility] Comment: If patient is -Guamanian, multiply result by 1.21 Chronic Kidney Disease: < 60 ml/min/1.73 square meters Kidney Failure: < 15 ml/min/1.73 square meters SODIUM 139 135 - 145 mEq/L [facility] POTASSIUM 4.2 3.5 - 5.5 mmol/L [facility] CHLORIDE 108 96 - 110 mmol/L [facility] CO2 27 21 - 32 mmol/L [facility] ANION GAP 4 3 - 11 [facility] CALCIUM 9.0 8.5 - 10.5 mg/dL [facility] TOTAL PROTEIN 6.8 6.0 - 8.0 G/dL [facility] ALBUMIN 3.8 3.2 - 5.0 G/dL [facility] SGOT 13 10 - 42 U/L [facility] SGPT 21 10 - 60 U/L [facility] BILI, TOTAL 0.3 0.0 - 1.4 mg/dL [facility] ALK PHOS 83 42 - 121 U/L [facility] Blood specimen (specimen) Blood / Unknown 06/15/2019 10:47 AM EDT 06/15/2019 10:54 AM EDT Narrative [facility] - 06/15/2019 7:17 PM EDT [place], a member of [address] [address] Glue Maker - Rosy Young MD PT ID [id number] ORD# [id number] [facility] - BLOOD DRAW Edited Result - Final [facility] [address] [place] [address], from Last 3 Months or Most Recently Relevant to Health Maintenance Insurance [facility] Care Teams Ivf Embryologist Relationship Specialty Start Date End Date Tito Mcneill PA [address] [place] [phone] PCP - General Internal Medicine 05/01/19
== END 2024-11-16 09:34 | disposition home or self-care (01) ==
LOC: HO.MAMMO 09:33
PROVIDERS: PCP Nurse Practitioner Family; Visit Provider Nurse Practitioner Family
DX: Z12.31 Encounter for screening mammogram for malignant neoplasm of breast (principal)
CPT/HCPCS: 77063; 77067

== ENCOUNTER 2024-12-30 14:55 | Outpatient (REF) | payer OTHER, SELFPAY ==
--- NOTE | ~2024-12-30 | CT_ITS ---
EXAMINATION: CT LOW-DOSE SCREENING CHEST WITHOUT CONTRAST CLINICAL INFORMATION: F17.210 - Nicotine dependence, cigarettes, uncomplicated COMPARISON: Chest CT on November 29, 2023 TECHNIQUE: Multidetector volumetric CT imaging of the chest is performed on a Siemens SOMATOM Definition scanner without contrast using low dose technique. Additional 2D coronal and sagittal reformatted images and axial 3D maximum intensity projection (MIP) images are generated on the CT workstation. This CT examination was performed using dose optimization techniques as appropriate, variously including the following: *Automated exposure control *Adjustment of mA and/or kV according to patient size (this includes techniques or standardized protocols for targeted exams where dose is matched to indication/reason for exam; i.e. extremities or head) *Use of iterative reconstruction technique CTDIvol: 1.40 mGy. FINDINGS: PULMONARY NODULES: No suspicious pulmonary nodules. Unchanged calcified granulomas: 4:29, 4:72. Unchanged punctate nodule in the right lower lobe (4:80). LUNGS: Central airways are patent. Small diverticulum in the right posterior tracheal wall (4:9). MEDIASTINUM: No mediastinal, hilar or axillary adenopathy. CORONARY ARTERY CALCIFICATION: None visualized on this study. THYROID GLAND: Unremarkable to the extent seen. CARDIOVASCULAR STRUCTURES: Aortic and heart size normal. No pericardial effusion. CHEST WALL/AXILLA: Unremarkable. UPPER ABDOMEN: Included portions of the solid organs in the upper abdomen unremarkable on noncontrast imaging. OSSEOUS STRUCTURES: No suspicious focal findings. CT/CT lung screening IMPRESSION: Unremarkable examination. No suspicious pulmonary nodules. ASSESSMENT: 1. Lung-RADS Category 2: Benign appearance or behavior of nodules. 2. Lung-RADS Category S: Negative. There are no clinically significant or potentially clinically significant findings not related to the lungs requiring urgent additional evaluation. RECOMMENDATION: Continued routine annual low-dose CT lung screening in 1 year is recommended. An order for CT CHEST LOW DOSE CANCER SCREENING ([id number]) can be placed. Electronically signed by: Lei Young MD 12/30/2024 03:52 PM EDT
--- OUTSIDE RECORDS SUMMARY | 2024-12-30 17:23 | XMS_ITS | Clinical Summary ---
Author Organization [address] [place] [address] [place] [phone] Phone Care Team Providers Care Physicist Nuclear Name Role Phone Demetrius Butler NP Primary Care Provider [phone] Immunizations Name Administration Dates Next Due Influenza [...] 10/21/2013 Zoster Vaccines (1 of 2) 10/21/2013 Colorectal Cancer Screening: Colonoscopy 02/12/2024 HIV Screening 02/12/2024 Hepatitis C Screening 02/12/2024 Social Influencers of Health Screening 02/12/2024 Depression Screening 04/08/2024 COVID-19 Vaccine (3 - 2024-2 6 season) 2024 07/15/2020, 06/24/2020 Influenza Vaccine (#1) 2024 , 02/18/2018, 04/22/2012 [...] this topic Insurance [employer] Care Teams Physicist Nuclear Relationship Specialty Start Date End Date Demetrius Butler NP [address] [place], [place] PCP - General Family Medicine 02/12/24
--- OUTSIDE RECORDS SUMMARY | 2024-12-30 17:23 | XMS_ITS | Clinical Summary ---
Author Organization [facility] Address [address] [place] [address] Care Team Providers Care Trestle Mainternance Laborer Name Role Phone Tito Mcneill Primary Care Provider [phone] Source Comments PLEASE NOTE, if this patient [...] Counseling (#1) 06/14/2020 Diabetes Screening 06/14/2022 06/15/2019 Alcohol and Drug Screen 04/08/2024 06/15/2019 Depression Annual Screen 04/08/2024 06/15/2019 Lipid Screening 06/14/2024 06/15/2019 [id number] ( season) 2024 Imm-Influenza (#1) 2024 02/18/2018, 04/22/2012 Cervical Cancer [...] EDT) HEPATITIS B SURFACE ANTIBODY NEGATIVE NEGATIVE [facility] HEPATITIS B SURFACE ANTIGEN NEGATIVE NEGATIVE [facility] Comment: Over the counter supplements containing high doses of biotin may interfere with this assay. If interference is suspected, patients shoud be retested after refraining from biotin supplements for 72 hours. HEPATITIS C VIRUS DIAGNOSTIC NEGATIVE NEGATIVE [facility] HEPATITIS B CORE ANTIBODY NEGATIVE NEGATIVE [facility] HEPATITIS A ANTIBODY TOTAL NEGATIVE NEGATIVE [facility] Comment: Over the counter supplements containing high doses of biotin may interfere with this assay. If interference is suspected, patients shoud be retested after refraining from biotin supplements for 72 hours. Blood specimen (specimen) Blood / Unknown 06/15/2019 10:47 AM EDT 06/15/2019 10:[address] [facility] - 06/15/2019 7:38 PM EDT [place], [place] [address] Field Crop Farmworker - Rosy Young MD PT ID [id number] ORD# [id number] [facility] - BLOOD DRAW Edited Result - Final Performing Organization Address City/[facility] [place] [address], * (ABNORMAL) LIPID PANEL (06/15/2019 10:47 AM EDT) CHOLESTEROL 212(H) 0 - 200 mg/dL [facility] TRIGLYCERIDES 69 0 - 150 mg/dL [facility] HDL CHOLESTEROL 73 >40 mg/dL [facility] LDL CALCULATED 126(H) 0 - 100 mg/dL [facility] TC-HDLC RATIO 2.9 0 - 4.4 mg/dL [facility] Blood specimen (specimen) Blood / Unknown 06/15/2019 10:47 AM EDT 06/15/2019 10:54 AM EDT [place] [facility] - 06/15/2019 7:17 PM EDT [place] [address] Field Crop Farmworker - Rosy Young MD PT ID [id number] ORD# [id number] [facility] - BLOOD DRAW Edited Result - Final Performing Organization Address City/[facility]/ZIP Co de Phone Number [facility] [address] [place] [address], * COMPRE METAB PANEL (06/15/2019 10:47 AM EDT) GLUCOSE 77 70 - 100 mg/dL [facility] Comment:Reference range appl icable to fasting specimens only BUN 12 5 - 25 mg/dL [facility] CREAT 0.67 0.5 - 1.1 mg/dL [facility] GLOMERULAR FILTRATION RATE > 60 [facility] Comment: If patient is -Djiboutian, multiply result by 1.21 Chronic Kidney Disease: < 60 ml/min/1.73 square meters Kidney Failure: < 15 ml/min/1.73 square meters SODIUM 139 135 - 145 mEq/L [facility] POTASSIUM 4.2 3.5 - 5.5 mmol/L [facility] CHLORIDE 108 96 - 110 mmol/L [facility] CO2 27 21 - 32 mmol/L [facility] ANION GAP 4 3 - 11 [facility] CALCIUM 9.0 8.5 - 10.5 mg/dL [facility] TOTAL PROTEIN 6.8 6.0 - 8.0 G/dL [facility] ALBUMIN 3.8 3.2 - 5.0 G/dL [facility] SGOT 13 10 - 42 U/L [facility] SGPT 21 10 - 60 U/L [facility] BILI, TOTAL 0.3 0.0 - 1.4 mg/dL [facility] ALK PHOS 83 42 - 121 U/L [facility] Blood specimen (specimen) Blood / Unknown 06/15/2019 10:47 AM EDT 06/15/2019 10:[address] [facility] - 06/15/2019 7:17 PM EDT [place], a member of [address] [address] Field Crop Farmworker - Rosy Young MD PT ID [id number] ORD# [id number] [facility] - BLOOD DRAW Edited Result - Final [facility] [address] [place] [address], from Last 3 Months or Most Recently Relevant to Health Maintenance Insurance [facility] [employer] Care Teams Trestle Mainternance Laborer Relationship Specialty Start Date End Date Tito Mcneill PA [address] [place] [phone] PCP - General Internal Medicine 05/01/19
== END 2024-12-30 14:56 | disposition home or self-care (01) ==
LOC: HO.CT 14:55
PROVIDERS: PCP Nurse Practitioner Family; Visit Provider Physician Assistant Medical
DX: Z12.2 Encounter for screening for malignant neoplasm of respiratory organs (principal); F17.210 Nicotine dependence, cigarettes, uncomplicated
CPT/HCPCS: 71271

== ENCOUNTER → 2024-12-30 14:58 | Outpatient (BNV) | payer OTHER, SELFPAY | PROVIDERS: PCP Nurse Practitioner Family; Visit Provider Radiology Body Imaging | DX: Z12.2 Encounter for screening for malignant neoplasm of respiratory organs (principal); F17.210 Nicotine dependence, cigarettes, uncomplicated | CPT/HCPCS: 71271 ==